=== PATIENT | female | born 1960 | race Caucasian/White ===

== ENCOUNTER 2020-05-20 15:24 | Emergency (ER) | payer OTHER ==
[~2020-05-20 15:24] MED LIST: ASPIRIN CHEWABL81 MG PO; BUSPIRONE HCL15 MG PO; CELEBREX200 MG PO; CYCLOBENZAPRINE10 MG PO; DEXILANT60 MG PO; FIORICET1 EACH PO; IMITREX100 MG PO; MEDROL 4MG DOSEP4 MG PO; NORCO 5-325 TA1 EACH PO; PRAVASTATIN SOD80 MG PO; PREDNISONE 20MG20 MG PO; PRISTIQ ER100 MG PO; ROBAXIN750 MG PO; TOPAMAX100 MG PO; TRAZODONE 100M100 MG PO; VITAMIN D31000 UNI1 PO
[2020-05-20 15:51] LABS: BASOPHIL 0.2 % (0-2); EOSINOPHIL 0 % (0-5); HCT 46.8 % (37.0-47.0); HGB 15.1 g/dl (12.5-16.0); LYMPHOCYTE 4.2 % (15-48); MCHC 32.3 g/dL (32.0-36.0); MCV 96.1 fL (78.0-100.0); MONOCYTE 4.2 % (0-12); MPV 9.8 fL (6.0-9.5); NEUTROPHIL 89.9 % (41-80); NRBC 0; PLT 334 K/uL (150-400); RBC 4.87 M/uL (4.20-5.40); RDW 11.9 % (11.5-14.0); WBC 20.5 K/uL (4.0-10.5)
[2020-05-20 16:02] LABS: ALBUMIN 3.5 g/dL (3.4-5.0); ALKALINE PHOSHATASE 129 U/L (46-116); ALT 77 U/L (14-59); AST 60 U/L (15-37); BILIRUBIN - TOTAL 0.3 mg/dL (0.2-1.0); BUN 13 mg/dL (7-18); BUN/CREAT RATIO (CALC) 14.9 RATIO; CHLORIDE 108 mmol/L (98-107); CO2 (BICARBONATE) 17 mmol/L (21-32); CREATININE 0.87 mg/dL (0.51-0.95); GLUCOSE 146 mg/dL (74-106); LIPASE 147 U/L (73-393); POTASSIUM 4.3 mmol/L (3.5-5.1); TOTAL PROTEIN 7.5 g/dL (6.4-8.2)
[2020-05-20 18:29] LABS: BILIRUBIN NEGATIVE (NEGATIVE); BLOOD NEGATIVE Ery/uL (NEGATIVE); CLARITY HAZY (CLEAR); COLOR YELLOW (YELLOW); GLUCOSE (U) NORMAL (NORMAL); LEUKOCYTES NEGATIVE Leu/uL (NEGATIVE); NITRITE NEGATIVE (NEGATIVE); PROTEIN NEGATIVE (NEGATIVE); UROBILINOGEN 0.2 mg/dL (0.2-1.0)
[2020-05-20] MEDS ORDERED: NORCO 5-325 TA1 EACH PO (19:21)
[2020-05-20] MEDS ORDERED: ROBAXIN750 MG PO (19:21)
== END 2020-05-20 22:40 | disposition home or self-care (01) ==
LOC: FER 15:24
PROVIDERS: Emergency Medicine
DX: S32.018A Other fracture of first lumbar vertebra, initial encounter for closed fracture (principal); R51.9 Headache, unspecified; M54.2 Cervicalgia; M54.6 Pain in thoracic spine; M25.562 Pain in left knee; M25.561 Pain in right knee; I10 Essential (primary) hypertension; Z87.39 Personal history of other diseases of the musculoskeletal system and connective tissue; Z88.5 Allergy status to narcotic agent; Z79.82 Long term (current) use of aspirin; Z79.899 Other long term (current) drug therapy; V47.5XXA Car driver injured in collision with fixed or stationary object in traffic accident, initial encounter; Y92.410 Unspecified street and highway as the place of occurrence of the external cause; Z23 Encounter for immunization
CPT/HCPCS: 36415; 70450; 70486; 71260; 72125; 72128; 72131; 73552; 80053; 81003; 83690; 85025; 86850; 86900; 86901; 90471; 90715; 93005; G0480; J1170; J2405; J3010; J7030; Q9967

== ENCOUNTER 2021-04-24 05:49 | Day surgery (SDCO) | payer OTHER ==
[~2021-04-24] VITALS: Ht 168 cm; Wt 88.0 kg
[~2021-04-24 05:49] MED LIST changes: +ASCORBIC ACID500 MG PO; +DULOXETINE HCL60 MG PO; +OS-CAL500 MG PO
--- NOTE | 2021-04-24 12:34 | NUR ---
MET WITH PT AND SPOUSE. PT WILL NEED A RW AND APPT WITH [facility]. [phone]. FAX IS [phone].
[2021-04-25 07:34] LABS: BASOPHIL 0.3 % (0-2); EOSINOPHIL 2.1 % (0-5); HCT 37.4 % (37.0-47.0); LYMPHOCYTE 22.6 % (15-48); MCH 31.4 pg (25.0-31.0); MCHC 32.1 g/dL (32.0-36.0); MCV 97.9 fL (78.0-100.0); MONOCYTE 8.9 % (0-12); MPV 9.4 fL (6.0-9.5); NEUTROPHIL 65.8 % (41-80); NRBC 0; PLT 228 K/uL (150-400); RBC 3.82 M/uL (4.20-5.40); RDW 11.9 % (11.5-14.0); WBC 6.7 K/uL (4.0-10.5)
[2021-04-25 08:11] LABS: ALBUMIN 2.8 g/dL (3.4-5.0); BILIRUBIN - TOTAL 0.5 mg/dL (0.2-1.0); BUN/CREAT RATIO (CALC) 10.8 RATIO; CREATININE 0.93 mg/dL (0.51-0.95); GLOBULIN (CALCULATION) 3.1 g/dL; POTASSIUM 4.1 mmol/L (3.5-5.1); TOTAL PROTEIN 5.9 g/dL (6.4-8.2)
[2021-04-25] MEDS ORDERED: OXYCODONE-ACET1 EAC1 PO (08:55)
[2021-04-25] MEDS ORDERED: XARELTO10 MG PO (08:55)
[2021-04-25] MEDS ORDERED: FEOSOL325 MG PO (08:55)
--- NOTE | 2021-04-25 10:57 | NUR ---
04/25 [facility] has delivered patient's rw. An Outpatient PT appointment is scheduled at [facility] 04/26.
== END 2021-04-25 11:55 | disposition home or self-care (01) ==
LOC: FAS 05:49 → FMS 09:36
PROVIDERS: Nurse Practitioner; ADMIT Internal Medicine
DX: M17.11 Unilateral primary osteoarthritis, right knee (principal); M21.161 Varus deformity, not elsewhere classified, right knee; M25.761 Osteophyte, right knee; M67.261 Synovial hypertrophy, not elsewhere classified, right lower leg; G43.909 Migraine, unspecified, not intractable, without status migrainosus; E78.5 Hyperlipidemia, unspecified; K21.9 Gastro-esophageal reflux disease without esophagitis; Z88.6 Allergy status to analgesic agent; Z90.710 Acquired absence of both cervix and uterus; Z98.61 Coronary angioplasty status
CPT/HCPCS: 36415; 73560; 80053; 85025; 86850; 86900; 86901; 94010; 94760; 94762; 97110; 97162; 97166; 97530-GP; 97535; C1713; C1776; G0378; J0171; J0697; J1170; J1885; J2250; J2370; J2704; J2795; J3010; J7120